=== PATIENT | female | born 1940 | race Caucasian/White ===

== ENCOUNTER 2018-09-25 15:46 | Emergency (ER) | payer MEDICARE ==
--- NOTE | 2018-09-25 16:21 | ER Document Report ---
ED Medical Screen (RME) - General Chief Complaint: Breathing Difficulty Stated Complaint: COUGH Time Seen by Provider: 09/25/18 16:17 Primary Care Provider: ARIAN CONNER NP [Primary Care Provider] - Follow up as needed Mode of Arrival: Wheelchair Information source: Patient Notes: 78-year-old female presents to ED for cough cold congestion. She states she went to her primary doctor at [facility] and states very on Friday they told her she had pneumonia started on Augmentin she has taken 5 days of Augmentin. She states she was not getting better so she went back to [facility] today. She states they did x-rays and told her that her pneumonia was worse and send her to the emergency room. She has a history of COPD his cholesterol high blood pressure pneumonia arthritis and inguinal hernias. She states she has had bilateral cataracts removed. States she does not smoke drink or do any drugs. She does live with her family. Lungs are coarse but no definite crackles heard. O2 sat is 95% afebrile with a pulse of 101. I have greeted and performed a rapid initial assessment of this patient. A comprehensive ED assessment and evaluation of the patient, analysis of test results and completion of medical decision making process will be conducted by an additional ED providers. TRAVEL OUTSIDE OF THE [place] IN LAST 30 DAYS: No - Related Data Allergies/Adverse Reactions: No Known Allergies Allergy (Unverified 09/25/18 15:48) Past Medical History - Past Medical History Cardiac Medical History: Reports: Hx Hypercholesterolemia, Hx Hypertension Pulmonary Medical History: Reports: Hx COPD GI Medical History: Reports: Hx Hiatal Hernia Musculoskeltal Medical History: Reports Hx Arthritis Physical Exam - Vital signs Vitals: Temp Pulse Resp BP Pulse Ox 98.9 F 101 H 16 155/78 H 95 09/25/18 15:59 09/25/18 15:59 09/25/18 15:59 09/25/18 15:59 09/25/18 15:59 Course - Vital Signs Vital signs: Temp Pulse Resp BP Pulse Ox 98.9 F 101 H 16 155/78 H 95 09/25/18 15:59 09/25/18 15:59 09/25/18 15:59 09/25/18 15:59 09/25/18 15:59 Doctor's Discharge - Discharge Referrals: ARIAN CONNER NP [Primary Care Provider] - Follow up as needed
[2018-09-25 17:57] LABS: ABSOLUTE EOSINOPHILS # (AUTO) 0.1 10^3/uL (0.0-0.6); ABSOLUTE LYMPHOCYTES (AUTO) 1.6 10^3/uL (0.5-4.7); ABSOLUTE MONOCYTES (AUTO) 0.5 10^3/uL (0.1-1.4); ABSOLUTE NEUT (AUTO) 7.8 10^3/uL (1.7-8.2); BASOPHILS % (AUTO) 0.5 % (0-2); EOSINOPHILS % (AUTO) 0.9 % (0-6); HEMATOCRIT 41.3 % (36.0-47.0); HEMOGLOBIN 14.2 g/dL (12.0-15.5); MEAN CORPUSCULAR HEMOGLOBIN 31.7 pg (27.0-33.4); MEAN CORPUSCULAR HGB CONC 34.3 g/dL (32.0-36.0); MEAN CORPUSCULAR VOLUME 93 fl (80-97); MONOCYTES % (AUTO) 4.8 % (3-13); PLATELET COUNT 303 10^3/uL (150-450); RED BLOOD COUNT 4.47 10^6/uL (3.72-5.28); RED CELL DISTRIBUTION WIDTH 13.6 % (11.5-14.0); SEGMENTED NEUTROPHILS % (AUTO) 77.8 % (42-78); TOTAL CELLS COUNTED % (AUTO) 100 %; WHITE BLOOD COUNT 10.1 10^3/uL (4.0-10.5)
[2018-09-25 18:08] LABS: ALANINE AMINOTRANSFERASE 24 U/L (9-52); ALBUMIN 4.8 g/dL (3.5-5.0); ALKALINE PHOSPHATASE 114 U/L (38-126); ANION GAP 11 (5-19); ASPARTATE AMINO TRANSFERASE 27 U/L (14-36); BILIRUBIN,DIRECT 0.3 mg/dL (0.0-0.4); BILIRUBIN,TOTAL 0.6 mg/dL (0.2-1.3); BLOOD UREA NITROGEN 11 mg/dL (7-20); CALCIUM 9.5 mg/dL (8.4-10.2); CARBON DIOXIDE 27 mmol/L (22-30); CHLORIDE 99 mmol/L (98-107); GLUCOSE 109 mg/dL (75-110); POTASSIUM 4.7 mmol/L (3.6-5.0); SODIUM 137.2 mmol/L (137-145); TOTAL PROTEIN 7.8 g/dL (6.3-8.2)
--- NOTE | 2018-09-25 19:20 | RADIOLOGY REPORT (SQ) ---
EXAM DESCRIPTION: CHEST 2 VIEWS COMPLETED DATE/TIME: 09/25/2018 7:02 pm REASON FOR STUDY: dx pneumonia friday augmentin told worse today COMPARISON: 06/06/2016 EXAM PARAMETERS: NUMBER OF VIEWS: two views TECHNIQUE: Digital Frontal and Lateral radiographic views of the chest acquired. RADIATION DOSE: NA LIMITATIONS: none FINDINGS: LUNGS AND PLEURA: Chronic changes in the right lung. Left lung is clear. MEDIASTINUM AND HILAR STRUCTURES: No masses or contour abnormalities. HEART AND VASCULAR STRUCTURES: Heart normal size. No evidence for failure. BONES: No acute findings. HARDWARE: None in the chest. OTHER: No other significant finding. IMPRESSION: Stable appearance of the chest since 2015. No acute parenchymal findings. TECHNICAL DOCUMENTATION: JOB ID: [id number] [employer]- All Rights Reserved Reading location - IP/workstation name: [email or web address]
[2018-09-25 20:34] LABS: APPEARANCE,URINE CLEAR; BILIRUBIN,URINE NEGATIVE (NEGATIVE); COLOR,URINE STRAW; GLUCOSE, URINE NEGATIVE (NEGATIVE); KETONES,URINE NEGATIVE (NEGATIVE); LEUKOCYTE ESTERASE,URINE NEGATIVE (NEGATIVE); NITRITE,URINE NEGATIVE (NEGATIVE); PROTEIN,URINE NEGATIVE (NEGATIVE); URINE SPECIFIC GRAVITY 1.005; UROBILINOGEN,URINE NEGATIVE mg/dL (<2.0)
--- NOTE | 2018-09-25 21:58 | ER Document Report ---
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 Patient was seen in the clinic on Friday, diagnosed with a viral upper respiratory infection but was nonetheless started on levofloxacin. Return to the office today due to ongoing cough, chest x-ray was obtained and she was referred to the emergency department due to concerns that she had a pneumonia that was not responding to oral antibiotics. The patient has not had fever, shortness of breath, or increased dyspnea on exertion. States that she is only needing a breathing treatment once or twice daily. States that the cough is a persistent and aggravating cough. Has not r esponded to a cough medication that was provided by the primary care physician the name of which she cannot recall. States her coughing seems to be triggered or worsened by exhaling rapidly, laughing. Has had similar symptoms in the past with viral infections. TRAVEL OUTSIDE OF THE [place] IN LAST 30 DAYS: No - Related Data Allergies/Adverse Reactions: No Known Allergies Allergy (Unverified 09/25/18 15:48) Past Medical History - General Information source: Patient - Social History Smoking Status: Never Smoker Frequency of alcohol use: None Drug Abuse: None Lives with: Family Family History: Reviewed & Not Pertinent Patient has suicidal ideation: No Patient has homicidal ideation: No - Past Medical History Cardiac Medical History: Reports: Hx Hypercholesterolemia, Hx Hypertension Pulmonary Medical History: Reports: Hx COPD Renal/ Medical History: Denies: Hx Peritoneal Dialysis GI Medical History: Reports: Hx Hiatal Hernia Musculoskeletal Medical History: Reports Hx Arthritis Review of Systems - Review of Systems Notes: Constitutional: Negative for fever. HENT: Negative for sore throat. Eyes: Negative for visual changes. Cardiovascular: Negative for chest pain. Respiratory: Positive for cough and shortness of breath Gastrointestinal: Negative for abdominal pain, vomiting or diarrhea. Genitourinary: Negative for dysuria. Musculoskeletal: Negative for back pain. Skin: Negative for rash. Neurological: Negative for headaches, weakness or numbness. 10 point ROS negative except as marked above and in HPI. Physical Exam - Vital signs Vitals: Temp Pulse Resp BP Pulse Ox 98.9 F 101 H 16 155/78 H 95 09/25/18 15:59 09/25/18 15:59 09/25/18 15:59 09/25/18 15:59 09/25/18 15:59 Interpretation: Tachycardic - Resolved at the time of my assessment Notes: PHYSICAL EXAMINATION: GENERAL: Well-appearing, well-nourished and in no acute distress. HEAD: Atraumatic, normocephalic. EYES: Pupils equal round and reactive to light, extraocular movements intact, sclera anicteric, conjunctiva are normal. ENT: nares patent, oropharynx clear without exudates. Moist mucous membranes. NECK: Normal range of motion, supple without lymphadenopathy LUNGS: Breath sounds clear to auscultation bilaterally and equal. Faint expiratory wheezing in all lung [place] HEART: Regular rate and rhythm without murmurs ABDOMEN: Soft, nontender, normoactive bowel sounds. No guarding, no rebound. No masses appreciated. EXTREMITIES: Normal range of motion, no pitting or edema. No cyanosis. NEUROLOGICAL: No focal neurological deficits. Moves all extremities spontaneously and on command. PSYCH: Normal mood, normal affect. SKIN: Warm, Dry, normal turgor, no rashes or lesions noted. Course - Re-evaluation Re-evalutation: 09/25/18 21:55 Patient was sent over from a primary care/urgent care setting with concern of a pneumonia not responding to levofloxacin. I suspect that perhaps the facility did not have access to the patient's previous chest x-rays as her chest x-ray does show chronic scarring to the bases and is actually unchanged from May 2016 which is the last time I have an x-ray from this patient. The patient has no other objective signs of pneumonia. No leukocytosis, no fever, no hypoxia or tachypnea. She does have COPD, states that her saturations at baseline are approximate 95% which is what they are today. The patient is calm and conversing with me, in no distress of any kind. Very faint expiratory wheezing but otherwise unremarkable. Patient was started on levofloxacin for a diagnosis of a viral upper respiratory infection on Friday but sent here because she was not getting better. I suspect that the patient does have is indeed a viral upper respiratory infection likely a bronchitis as opposed to an acute pne umonia. I have asked the patient to stop levofloxacin immediately. Given that she does have underlying COPD as well as some scant wheezing she has been started on prednisone. Tessalon Perles for coughing. At this time will discharge with return precautions and follow-up recommendations. Verbal discharge instructions given a the bedside and opportunity for questions given. Medication warnings reviewed. Patient is in agreement with this plan and has verbalized understanding of return precautions and the need for primary care follow-up in the next 24-72 hours. - Vital Signs Vital signs: Temp Pulse Resp BP Pulse Ox 98.4 F 89 16 147/76 H 96 09/25/18 22:12 09/25/18 22:12 09/25/18 22:12 09/25/18 22:12 09/25/18 22:12 - Laboratory Result Diagrams: 09/25/18 17:10 09/25/18 17:10 Laboratory results interpreted by me: 09/25/18 17:10 Est GFR (Non-Af Amer) 50 L - Diagnostic Test Radiology reviewed: Image reviewed, Reports reviewed Radiology results interpreted by me: 09/25/18 21:56 Chest x-ray: Chronic scarring to the right base unchanged from previous Discharge - Discharge Clinical Impression: Bronchitis, Persistent cough Condition: Good Disposition: HOME, SELF-CARE Additional Instructions: You were seen for symptoms most consistent with bronchitis. This can take up to 12 weeks to fully resolve. This is generally due to a viral infection. Please follow-up with your primary doctor in the next 2-3 days. Return if you develop worsening cough, vomiting, fever >100.4, pass out, begin coughing blood, or have any other symptoms that are concerning to you. Please use the medications prescribed today as directed. Take the prednisone as prescribed. Take an albuterol inhaler or nebulizer every 4-6 hours, scheduled throughout the day even if your breathing is feeling well until your cough has resolved. Use the Tessalon Perles as needed for coughing. Prescriptions: Benzonatate [Tessalon Perles 100 mg Capsule] 100 mg PO Q8HP PRN #40 capsule PRN Reason: Prednisone [Deltasone 20 mg Tablet] 2 tab PO DAILY 5 Days tablet Referrals: ARIAN CONNER [employer] [NURSE PRACTITIONER] - Follow up as needed
[2018-09-25 22:15] VITALS: BP 147/76
[2018-09-25] MEDS ORDERED: PREDNISONE 20 MG TABLET PO ONE (22:38)
[2018-09-25] MEDS ORDERED: BENZONATATE 100 MG CAPSULE PO ONE (22:38)
== END 2018-09-25 22:25 | disposition home or self-care (01) ==
LOC: ER 15:46
DX: J44.1 Chronic obstructive pulmonary disease with (acute) exacerbation (principal); J44.0 Chronic obstructive pulmonary disease with (acute) lower respiratory infection; J40 Bronchitis, not specified as acute or chronic; R06.02 Shortness of breath; R05 Cough; I10 Essential (primary) hypertension
CPT/HCPCS: 99283; 36415; 87040; 85025; 80053; 81001; 71046; A9270 ×2; J7512